=== PATIENT | female | born 1960 | race Caucasian/White ===

== ENCOUNTER 2022-07-10 06:42 | Day surgery (SDC) | payer OTHER ==
[~2022-07-10] VITALS: Ht 167.6 cm; Wt 68.1 kg
[~2022-07-10 06:42] MED LIST: QVAR REDIHALE10.6 G3 INH; Ventolin/Prove6.7 GM INH
--- NOTE | 2022-07-10 12:06 | NUR ---
RESP RATE HAS AVERAGED 12 DURING PACU STAY
--- NOTE | 2022-07-10 18:21 | NUR ---
SHIFT SUMMARY PT S/P FOR R TOTAL KNEE. AQUACEL DRESSING IN PLACE AND CDI. PT HAS GOTTEN UP WITH PHYSICAL THERAPY, VOIDING, AND TOLERATING PO INTAKE WELL. TREATED FOR PAIN PER EMR. PT HAD A SPINAL WHICH HAS SINCE WORN OFF. VSS.
--- NOTE | 2022-07-11 04:00 | NUR ---
HYPOTENSION PT HYPOTENSIVE AND HAS BEEN MOST OF HER ADMISSION, PT IS ASYMPTOMATIC AND MAP ABOVE 65. FLARE WORKER SONYA NOTIFIED OF PT BP SHE HAS REACHED OUT TO DR. ROBB TO NOTIFY, HAVE NOT YET HEARD BACK FROM DR. ROBB AND NO NEW ORDERS RECEIVED AT THIS TIME. PT RESTING COMFORTABLY WITHOUT DISTRESS.
[2022-07-11 05:09] LABS: BASOPHILS ABSOLUTE AUTO 0.02 K/mm3 (0.00-0.23); BASOPHILS PERCENT AUTO 0 % (0-2); EOSINOPHILS ABSOLUTE AUTO 0.02 K/mm3 (0.00-0.68); EOSINOPHILS PERCENT AUTO 0 % (0-6); Hematocrit 33.5 % (33.0-51.0); Hemoglobin 11.1 g/dL (11.5-16.0); IMMATURE GRAN ABSOLUTE AUTO 0.05 K/mm3 (0.00-0.10); IMMATURE GRAN PERCENT AUTO 0 % (0-1); LYMPHOCYTES ABSOLUTE AUTO 1.24 K/mm3 (0.84-5.20); LYMPHOCYTES PERCENT AUTO 9 % (21-46); MONOCYTES ABSOLUTE AUTO 0.67 K/mm3 (0.16-1.47); MONOCYTES PERCENT AUTO 5 % (4-13); Mean Corpuscular HGB 30.5 pg (26.0-34.0); Mean Corpuscular HGB Conc 33.1 g/dL (31.5-36.5); Mean Corpuscular Volume 92 fL (80-100); Mean Platelet Volume 10.3 fL (9.1-12.4); NEUTROPHILS ABSOLUTE AUTO 12.44 K/mm3 (1.96-9.15); NEUTROPHILS PERCENT AUTO 86 % (41-73); Platelet Count 325 K/mm3 (150-400); RDW Coefficient Variation 12.1 % (11.7-14.2); RDW Standard Deviation 40.8 fL (35.1-46.3); Red Blood Cell Count 3.64 M/mm3 (3.80-5.20); White Blood Cell Count 14.44 K/mm3 (4.00-11.30)
[2022-07-11 05:34] LABS: Bun/Creatinine Ratio 34.1 (12.0-20.0); Calcium, Blood 8.2 mg/dL (8.5-10.1); Creatinine, Blood 0.56 mg/dL (0.40-1.00)
--- NOTE | 2022-07-11 06:12 | NUR ---
SHIFT SUMMARY PT POD 0 RIGHT TOTAL KNEE, SHE HAS DONE WELL OVERNIGHT PAIN MANAGED PER EMAR ORDERS. SHE HAS BEEN UP AND AMBULATING TO THE BATHROOM. PT HYPOTENSIVE, SHE REPORTS THAT HER BP USALLY RUNS LOW. PT ASYMPTOMATIC, MAP WNL. PT ABLE TO TOLERATE PO INTAKE. A/OX4. DRESSING INTACT TO RIGHT KNEE, SHE DENIES N/T. BED IN LOWEST POSITION, CALL LIGHT WITHIN REACH.
[2022-07-11] MEDS ORDERED: Percocet 5-3251 EACH PO (08:44)
[2022-07-11] MEDS ORDERED: ASPI81CH PO (08:44)
--- NOTE | 2022-07-11 11:00 | NUR ---
DISCHARGE SUMMARY PT [id number], VSS/RA, GARY PO, VOIDING, AMB SBA FWW/GB, UP TO CHAIR, PAIN MANAGED WITH TYLENOL AND TORADOL, IV DC'D. DC INS PROVIDED. PT REP UNDERSTANDING THOSE INSTRUCTIONS INCLUDING FU WITH SURGEON, PT SCHEDULED, SHORT FREQUENT WALKS WITH FWW, DRESSING CHANGES, OK TO SHOWER/NO TUB BATHS, COMPRESSIONS STOCKINGS, ASA BID. LEFT FLOOR VIA WC WITH ELECTRICAL PROSPECTING OBSERVER TO GO HOME WITH , WITH ALL PERSONAL POSSESSIONS INCLUDING DC PACKET, AQUACEL DRESSINGS, SCRIPTS(PERC & ASA).
== END 2022-07-11 11:50 | disposition home or self-care (01) ==
LOC: ORSCMMR 06:42 → ORD 08:15 → SURS 12:37 → ORSCMMR 07-11 11:50
PROVIDERS: Orthopaedic Surgery
PROC: 8E0Y0CZ Robotic Assisted Procedure of Lower Extremity, Open Approach (ICD-10-PCS; principal; 2022-07-10 08:15)
PROC: 0SRD0JA Replacement of Left Knee Joint with Synthetic Substitute, Uncemented, Open Approach (ICD-10-PCS; principal; 2022-07-10 08:15)
DX: M17.11 Unilateral primary osteoarthritis, right knee (principal); J45.909 Unspecified asthma, uncomplicated; Z79.51 Long term (current) use of inhaled steroids; Z79.899 Other long term (current) drug therapy
CPT/HCPCS: 27447; 20985; S2900; 36415; 73560-RT; 80048; 85025; 94640; 94664; 94760; 97110; 97116; 97161; A9270; C1776; J0171; J0690; J0735; J1100; J1885; J2250; J2370; J2405; J2704; J2795; J3010; J7120

== ENCOUNTER → 2024-08-31 | Outpatient (CLI) | payer OTHER ==
[~2024-08-31] MED LIST changes: +ASPI81CH PO; +Percocet 5-3251 EACH PO
[2024-08-31 20:08] LABS: Bacterial Vaginosis PCR Negative (NEGATIVE); Candida Group, PCR NOT DETECTED (NOT DETECT); Candida glabrata-krusei, PCR NOT DETECTED (NOT DETECT)
== END ==
LOC: LAB SHORT 17:45 → LAB 17:45
PROVIDERS: Physician Assistant
DX: N89.8 Other specified noninflammatory disorders of vagina (principal)
CPT/HCPCS: 81515